=== PATIENT | female | born 1980 | race Caucasian/White ===

== ENCOUNTER 2017-03-09 17:21 | Emergency (ER) | payer MEDICAID ==
[~2017-03-09] VITALS: Ht 165.1 cm; Wt 72.7 kg
[~2017-03-09 17:21] MED LIST: AMITRIPTYLINE25 MG PO; CELEXA40 MG PO; CIPRO 500MG TA500 MG PO; NORCO 325 MG-51 TA1 PO
[2017-03-09 17:31] VITALS: BP 149/104
[2017-03-09] MEDS ORDERED: GABAPENTIN400 M2 PO (17:37)
[2017-03-09] MEDS ORDERED: ULTRAM50 M1 PO (17:37)
== END 2017-03-09 18:40 | disposition home or self-care (01) ==
LOC: ED 17:21
DX: S63.502A Unspecified sprain of left wrist, initial encounter (principal); X58.XXXA Exposure to other specified factors, initial encounter; G62.9 Polyneuropathy, unspecified

== ENCOUNTER 2017-10-09 13:22 | Emergency (ER) | payer MEDICAID ==
[~2017-10-09] VITALS: Ht 165.1 cm; Wt 77.3 kg
[~2017-10-09 13:22] MED LIST changes: +GABAPENTIN400 M2 PO; +ULTRAM50 M1 PO
[2017-10-09] MEDS ORDERED: CYCLOBENZ5 MG PO (13:30)
[2017-10-09] MEDS ORDERED: AMITRIPTYLINE H25 M2 PO (13:30)
[2017-10-09 14:10] LABS: EOS # 0.1 (0.04-0.40); EOS % 1.4 % (1.0-5.0); HEMATOCRIT 40.7 % (37.0-47.0); HEMOGLOBIN 13.6 g/dL (12.5-16.0); LYMPH# 3.1 (1.50-4.00); MEAN CELL VOLUME 94 fl (78-100); MEAN CORPUSCULAR HEMOGLOBIN 31 pg (27-31); MEAN CORPUSCULAR HGB CONC 33 g/dL (33-37); MEAN PLATELET VOLUME 9.8 fl (7.4-10.4); MONO # 0.8 (0.20-0.80); NEU # 5.9 (1.40-6.50); PLATELET COUNT 351 K/mm3 (130-400); RED BLOOD COUNT 4.34 M/mm3 (4.10-5.30); RED CELL DISTRIBUTION WIDTH 12.7 % (11.5-14.5); WHITE BLOOD COUNT 9.9 K/mm3 (4.8-10.8)
[2017-10-09 14:26] LABS: BUN/CREATININE RATIO 15.9 (6.0-26.0); CALCIUM 8.7 mg/dL (8.4-10.2); POTASSIUM 3.6 mmol/L (3.6-5.0)
[2017-10-09 14:38] LABS: URINE APPEARANCE CLOUDY; URINE COLOR YELLOW; URINE PROTEIN(semi-quant) TRACE mg/dL (NEGATIVE)
[2017-10-09 14:39] LABS: URINE BILIRUBIN NEGATIVE (NEGATIVE); URINE BLOOD 50 ery/uL (NEGATIVE); URINE GLUCOSE NEGATIVE (NEGATIVE); URINE KETONE NEGATIVE (NEGATIVE); URINE LEUKOCYTE ESTERASE TRACE (NEGATIVE); URINE NITRATE NEGATIVE (NEGATIVE); URINE UROBILINOGEN NORMAL (NORMAL)
[2017-10-09 14:40] LABS: URINE MUCUS PRESENT (NOT PRESENT)
[2017-10-09] MEDS ORDERED: PYRIDIUM200 M2 PO (15:01)
[2017-10-09] MEDS ORDERED: LEVAQUIN 750MG750 M1 PO (15:01)
[2017-10-09 15:08] VITALS: BP 144/79
== END 2017-10-09 15:05 | disposition home or self-care (01) ==
LOC: ED 13:22
PROVIDERS: Nurse Practitioner
DX: R35.0 Frequency of micturition (principal); N32.89 Other specified disorders of bladder; Z87.440 Personal history of urinary (tract) infections; F17.200 Nicotine dependence, unspecified, uncomplicated; Z98.51 Tubal ligation status

== ENCOUNTER 2020-08-26 12:21 | Emergency (ER) | payer MEDICAID ==
[~2020-08-26 12:21] MED LIST changes: +AMITRIPTYLINE H25 M2 PO; +CYCLOBENZ5 MG PO; +LEVAQUIN 750MG750 M1 PO; +PYRIDIUM200 M2 PO
[2020-08-26 13:18] LABS: URINE APPEARANCE HAZY; URINE COLOR BRIGHT YELLOW
[2020-08-26 13:27] LABS: URINE BILIRUBIN NEGATIVE (NEGATIVE); URINE BLOOD 50 ery/uL (NEGATIVE); URINE GLUCOSE NEGATIVE (NEGATIVE); URINE KETONE NEGATIVE (NEGATIVE); URINE LEUKOCYTE ESTERASE TRACE (NEGATIVE); URINE MUCUS PRESENT (NOT PRESENT); URINE NITRATE POSITIVE (NEGATIVE); URINE PROTEIN(semi-quant) NEGATIVE (NEGATIVE); URINE UROBILINOGEN NORMAL (NORMAL)
[2020-08-26] MEDS ORDERED: SEPTRA DS 8001 TAB PO (13:54)
[2020-08-26 14:07] VITALS: BP 121/80
== END 2020-08-26 13:59 | disposition home or self-care (01) ==
LOC: ED 12:21
PROVIDERS: Family Medicine
DX: N30.10 Interstitial cystitis (chronic) without hematuria (principal); Z88.8 Allergy status to other drugs, medicaments and biological substances

== ENCOUNTER 2021-03-31 10:40 | Emergency (ER) | payer MEDICAID ==
[~2021-03-31] VITALS: Ht 165.1 cm; Wt 61.4 kg
[~2021-03-31 10:40] MED LIST changes: +SEPTRA DS 8001 TAB PO
[2021-03-31] MEDS ORDERED: CYCLOBENZAPRINE10 M1 PO (10:51)
[2021-03-31] MEDS ORDERED: DULOXETINE30 MG PO (10:51)
[2021-03-31] MEDS ORDERED: BOTOX200 U (10:52)
[2021-03-31 11:32] LABS: BASO # 0.05 (0.02-0.10); EOS # 0.11 (0.04-0.40); EOS % 1.2 % (1.0-5.0); HEMATOCRIT 42.4 % (37.0-47.0); LYMPH# 2.87 (1.50-4.00); MEAN CELL VOLUME 96 fl (78-100); MEAN CORPUSCULAR HEMOGLOBIN 32 pg (27-31); MEAN CORPUSCULAR HGB CONC 33 g/dL (33-37); MEAN PLATELET VOLUME 9.5 fl (7.4-10.4); MONO # 0.73 (0.20-0.80); NEU # 5.72 (1.40-6.50); PLATELET COUNT 345 K/mm3 (130-400); RED BLOOD COUNT 4.42 M/mm3 (4.10-5.30); RED CELL DISTRIBUTION WIDTH 12.3 % (11.5-14.5); WHITE BLOOD COUNT 9.5 K/mm3 (4.8-10.8)
[2021-03-31 12:44] VITALS: BP 149/93
== END 2021-03-31 12:45 | disposition home or self-care (01) ==
LOC: ED 10:40
PROVIDERS: Family Medicine
DX: R07.89 Other chest pain (principal); G43.909 Migraine, unspecified, not intractable, without status migrainosus; F17.210 Nicotine dependence, cigarettes, uncomplicated; Z88.5 Allergy status to narcotic agent
CPT/HCPCS: J1885

== ENCOUNTER 2021-07-27 19:24 | Emergency (ER) | payer MEDICAID ==
[~2021-07-27 19:24] MED LIST changes: +BOTOX200 U; +CYCLOBENZAPRINE10 M1 PO; +DULOXETINE30 MG PO
[2021-07-27] MEDS ORDERED: DULOXETINE30 MG PO (19:39)
[2021-07-27] MEDS ORDERED: TOPAMAX25 M2 PO (19:40)
[2021-07-27] MEDS ORDERED: DICLOFENAC SOD50 MG PO (19:41)
[2021-07-27 21:05] LABS: BASO # 0.03 K/mm3 (0.02-0.10); EOS # 0.02 K/mm3 (0.04-0.40); EOS % 0.6 % (1.0-5.0); HEMATOCRIT 41.5 % (37.0-47.0); HEMOGLOBIN 13.9 g/dL (12.5-16.0); LYMPH# 1.12 K/mm3 (1.50-4.00); MEAN CELL VOLUME 94 fl (78-100); MEAN CORPUSCULAR HEMOGLOBIN 32 pg (27-31); MEAN CORPUSCULAR HGB CONC 34 g/dL (33-37); MEAN PLATELET VOLUME 9.9 fl (7.4-10.4); NEU # 1.35 K/mm3 (1.40-6.50); PLATELET COUNT 292 K/mm3 (130-400); RED BLOOD COUNT 4.41 M/mm3 (4.10-5.30); RED CELL DISTRIBUTION WIDTH 12.6 % (11.5-14.5); WHITE BLOOD COUNT 3.2 K/mm3 (4.8-10.8)
[2021-07-27 21:11] LABS: ALBUMIN 4.2 g/dL (3.5-5.0)
[2021-07-27 21:13] LABS: CALCIUM 8.6 mg/dL (8.3-10.5)
[2021-07-27 21:14] LABS: TOTAL PROTEIN 7.1 g/dL (6.4-8.3)
[2021-07-27 21:16] LABS: TOTAL BILIRUBIN 0.2 mg/dL (0.2-1.2)
[2021-07-27] MEDS ORDERED: PHENERGAN 25 TA25 MG PO (22:41)
[2021-07-27] MEDS ORDERED: KETOROLAC10 MG PO (22:41)
[2021-07-27] MEDS ORDERED: ORPHENADRINE C100 MG PO (22:41)
[2021-07-27 23:10] VITALS: BP 122/74
== END 2021-07-27 23:11 | disposition home or self-care (01) ==
LOC: ED 19:24
PROVIDERS: Family Medicine
DX: G43.909 Migraine, unspecified, not intractable, without status migrainosus (principal); E87.6 Hypokalemia; D72.819 Decreased white blood cell count, unspecified; Z79.899 Other long term (current) drug therapy
CPT/HCPCS: J1885; J2360; J2550; J7030; Q9967